=== PATIENT | male | born 1965 | race Two or more races ===

== ENCOUNTER 2021-12-02 17:00 | Inpatient (IN) | payer OTHER ==
[2021-12-02 18:58] VITALS: BMI 20.3
[2021-12-02] MEDS ORDERED: ACETAMINOPHEN 325 MG TABLET (FP) PO PRN (22:55)
[2021-12-02] MEDS ORDERED: ONDANSETRON *ODT* 4 MG TABLET SL PRN (22:55)
[2021-12-02] MEDS ORDERED: MAG HYDROX/AL HYDROX/SIMETH 30 ML UNIT-DOSE CUP PO PRN (22:55)
[2021-12-02] MEDS ORDERED: BENZOCAINE/MENTHOL (CHLORASEPTIC ) LOZENGE MM PRN (22:55)
[2021-12-02] MEDS ORDERED: MAGNESIUM CITRATE 300 ML BOTTLE PO PRN (22:55)
[2021-12-02] MEDS ORDERED: NICOTINE POLACRILEX 2 MG GUM BUC PRN (22:55)
[2021-12-02] MEDS ORDERED: MAGNESIUM HYDROX 2400MG/30ML ORAL SUSPENSION 30 ML CUP PO PRN (22:55)
[2021-12-02] MEDS ORDERED: DICYCLOMINE HCL 10 MG CAPSULE PO PRN (22:55)
[2021-12-02] MEDS ORDERED: BISMUTH SUBSALICYLATE 524 MG/30 ML PO PRN (22:55)
[2021-12-02] MEDS ORDERED: LOPERAMIDE HCL 2 MG CAPSULE PO PRN (22:55)
[2021-12-03] MEDS ORDERED: methaDONE HCL 10 MG TABLET (FOR DETOX USE ONLY) PO ONE (03:31)
[2021-12-03] MEDS: IBUPROFEN 400 MG TABLET (FP) PO PRN ×2 (03:48→10:52)
[2021-12-03] MEDS: METHOCARBAMOL 500 MG TABLET PO PRN ×2 (03:49→10:52)
[2021-12-03] MEDS: diazePAM 5 MG TABLET PO PRN (03:59)
[2021-12-03] MEDS: diazePAM 5 MG TABLET PO SCH ×4 (07:16→22:15)
[2021-12-03] MEDS: PRENATAL VITAMINS W/ FOLIC ACID TABLET (FP) PO SCH (10:49)
[2021-12-03] MEDS: cloNIDine HCL 0.1 MG TABLET PO PRN (10:52)
[2021-12-03] MEDS: NICOTINE 14 MG/24 HOURS TOPICAL PATCH TD SCH (11:09)
[2021-12-03 12:12] LABS: HEMATOCRIT 30.1 % (35.4-49); MEAN CELL VOLUME 65.3 fl (80-96); MEAN PLT VOLUME 8.4 fl (7.5-11.1); PLATELET COUNT 756 10^3/uL (134-434); RBC 4.62 M/mm3 (4.00-5.60); RDW 34.5 % (11.9-15.9); WHITE BLOOD COUNT 8.6 K/mm3 (4.0-10.0)
[2021-12-03 12:13] LABS: MCH 19.6 pg (25.7-33.7)
[2021-12-03 12:23] LABS: CALCIUM 8.6 mg/dL (8.5-10.1)
[2021-12-03 12:24] LABS: ALBUMIN 2.4 g/dl (3.4-5.0); BLOOD UREA NITROGEN 36.6 mg/dL (7-18)
[2021-12-03 12:27] LABS: CREATININE 1.3 mg/dL (0.55-1.3)
[2021-12-03 12:29] LABS: BILIRUBIN,TOTAL 0.2 mg/dL (0.2-1)
[2021-12-03] MEDS: ACETAMINOPHEN 325 MG TABLET (FP) PO PRN (17:25)
[2021-12-03] MEDS: MELATONIN 5 MG TABLETS PO SCH (22:15)
[2021-12-03] MEDS: THIAMINE HCL 100 MG TABLET (FP) PO SCH (22:15)
[2021-12-04] MEDS: diazePAM 5 MG TABLET PO SCH ×3 (06:02→22:38)
[2021-12-04] MEDS: ACETAMINOPHEN 325 MG TABLET (FP) PO PRN ×2 (06:05→22:40)
[2021-12-04] MEDS ORDERED: methaDONE HCL 10 MG TABLET (FOR DETOX USE ONLY) ONE (09:49)
[2021-12-04] MEDS: METHOCARBAMOL 500 MG TABLET PO PRN ×2 (10:26→18:43)
[2021-12-04] MEDS: NICOTINE 14 MG/24 HOURS TOPICAL PATCH TD SCH (10:26)
[2021-12-04] MEDS: PRENATAL VITAMINS W/ FOLIC ACID TABLET (FP) PO SCH (10:26)
[2021-12-04] MEDS: diazePAM 5 MG TABLET PO PRN (10:26)
[2021-12-04] MEDS: cloNIDine HCL 0.1 MG TABLET PO PRN ×2 (10:29→18:45)
[2021-12-04 12:51] LABS: CREATININE 0.8 mg/dL (0.55-1.3)
[2021-12-04 12:52] LABS: ALBUMIN 2.3 g/dl (3.4-5.0); BILIRUBIN,TOTAL 0.1 mg/dL (0.2-1); BLOOD UREA NITROGEN 24.4 mg/dL (7-18); CALCIUM 8.7 mg/dL (8.5-10.1); TOT PROT 6.5 g/dl (6.4-8.2)
[2021-12-04] MEDS ORDERED: METHOCARBAMOL 500 MG TABLET PO PRN (15:06)
[2021-12-04] MEDS: THIAMINE HCL 100 MG TABLET (FP) PO SCH (22:38)
[2021-12-04] MEDS: MELATONIN 5 MG TABLETS PO SCH (22:38)
[2021-12-05] MEDS: diazePAM 5 MG TABLET PO SCH ×2 (05:29→18:01)
[2021-12-05] MEDS: ACETAMINOPHEN 325 MG TABLET (FP) PO PRN ×3 (05:29→18:02)
[2021-12-05] MEDS ORDERED: methaDONE HCL 10 MG TABLET (FOR DETOX USE ONLY) PO ONE (10:00)
[2021-12-05] MEDS: diazePAM 5 MG TABLET PO PRN ×2 (10:20→22:10)
[2021-12-05] MEDS: PRENATAL VITAMINS W/ FOLIC ACID TABLET (FP) PO SCH (10:23)
[2021-12-05] MEDS: NICOTINE 14 MG/24 HOURS TOPICAL PATCH TD SCH (10:23)
[2021-12-05] MEDS: METHOCARBAMOL 500 MG TABLET PO PRN ×2 (18:06→22:10)
[2021-12-05] MEDS: cloNIDine HCL 0.1 MG TABLET PO PRN (22:10)
[2021-12-05] MEDS: THIAMINE HCL 100 MG TABLET (FP) PO SCH (22:10)
[2021-12-05] MEDS: MELATONIN 5 MG TABLETS PO SCH (22:11)
[2021-12-06] MEDS: METHOCARBAMOL 500 MG TABLET PO PRN ×3 (03:57→18:09)
[2021-12-06] MEDS: ACETAMINOPHEN 325 MG TABLET (FP) PO PRN ×2 (03:58→22:21)
[2021-12-06] MEDS ORDERED: diazePAM 5 MG TABLET PO ONE (06:00)
[2021-12-06] MEDS ORDERED: methaDONE HCL 10 MG TABLET (FOR DETOX USE ONLY) ONE (09:47)
[2021-12-06] MEDS: PRENATAL VITAMINS W/ FOLIC ACID TABLET (FP) PO SCH (10:26)
[2021-12-06] MEDS: NICOTINE 14 MG/24 HOURS TOPICAL PATCH TD SCH (10:27)
[2021-12-06] MEDS: amLODIPine BESYLATE 5 MG TABLET (FP) PO SCH (17:29)
[2021-12-06] MEDS: MELATONIN 5 MG TABLETS PO SCH (22:21)
[2021-12-06] MEDS: THIAMINE HCL 100 MG TABLET (FP) PO SCH (22:21)
[2021-12-07] MEDS ORDERED: methaDONE HCL 10 MG TABLET (FOR DETOX USE ONLY) PO ONE (10:00)
[2021-12-07] MEDS: amLODIPine BESYLATE 5 MG TABLET (FP) PO SCH (10:19)
[2021-12-07] MEDS: PRENATAL VITAMINS W/ FOLIC ACID TABLET (FP) PO SCH (10:20)
[2021-12-07] MEDS: METHOCARBAMOL 500 MG TABLET PO PRN ×2 (10:20→17:55)
[2021-12-07] MEDS: NICOTINE 14 MG/24 HOURS TOPICAL PATCH TD SCH (10:22)
[2021-12-07 12:03] LABS: BASO % 0.5 % (0-2.0); EOS % 4.9 % (0-4.5); HEMATOCRIT 28.8 % (35.4-49); HEMOGLOBIN 8.8 GM/dL (11.7-16.9); LYMPH % 29.7 % (8-40); MCH 20.1 pg (25.7-33.7); MCHC 30.7 g/dl (32.0-35.9); MEAN CELL VOLUME 65.6 fl (80-96); MEAN PLT VOLUME 8.5 fl (7.5-11.1); MONO % 6.8 % (3.8-10.2); NEUT % 58.1 % (42.8-82.8); PLATELET COUNT 619 10^3/uL (134-434); RDW 34.9 % (11.9-15.9); WHITE BLOOD COUNT 8.7 K/mm3 (4.0-10.0)
[2021-12-07 12:30] LABS: ANISOCYTOSIS 3+; MACROCYTOSIS 1+; OVALOCYTE 1+
[2021-12-07] MEDS: IBUPROFEN 400 MG TABLET (FP) PO PRN (22:41)
[2021-12-07] MEDS: MELATONIN 5 MG TABLETS PO SCH (22:42)
[2021-12-07] MEDS: THIAMINE HCL 100 MG TABLET (FP) PO SCH (22:42)
[2021-12-08 09:00] VITALS: BP 139/84; PULSE 80; TEMP 97.3
[2021-12-08] MEDS: amLODIPine BESYLATE 5 MG TABLET (FP) PO SCH (09:40)
[2021-12-08] MEDS: IBUPROFEN 400 MG TABLET (FP) PO PRN (09:40)
== END 2021-12-08 09:56 | disposition home or self-care (01) | DRG 773 ==
LOC: YASAS 17:00 → Y3N 12-03 02:39
PROVIDERS: ADMIT Allergy & Immunology; ATTEND Allergy & Immunology
PROC: HZ2ZZZZ Detoxification Services for Substance Abuse Treatment (ICD-10-PCS; principal; 2021-12-03)
DX: F11.23 Opioid dependence with withdrawal (principal); F13.20 Sedative, hypnotic or anxiolytic dependence, uncomplicated; E88.09 Other disorders of plasma-protein metabolism, not elsewhere classified; E78.5 Hyperlipidemia, unspecified; D75.839 Thrombocytosis, unspecified; D64.9 Anemia, unspecified; R79.89 Other specified abnormal findings of blood chemistry; I87.8 Other specified disorders of veins; L97.821 Non-pressure chronic ulcer of other part of left lower leg limited to breakdown of skin; L97.811 Non-pressure chronic ulcer of other part of right lower leg limited to breakdown of skin; I25.10 Atherosclerotic heart disease of native coronary artery without angina pectoris; I10 Essential (primary) hypertension; Z95.5 Presence of coronary angioplasty implant and graft; I25.2 Old myocardial infarction
CPT/HCPCS: 36415; 80053; 85025; 85027; 86780; 93005; 93010; C9803-CS; J0735; U0003; U0005

== ENCOUNTER 2021-12-02 23:53 | Emergency (ER) | payer OTHER ==
[2021-12-03 00:04] VITALS: BP 146/84; PULSE 78; TEMP 97.3; BMI 20.3
== END 2021-12-03 01:21 | disposition home or self-care (01) ==
LOC: JER 23:53
DX: S81.801A Unspecified open wound, right lower leg, initial encounter (principal); S81.802A Unspecified open wound, left lower leg, initial encounter; Y99.9 Unspecified external cause status
CPT/HCPCS: 99283-25